=== PATIENT | female | born 1990 | race Caucasian/White ===

== ENCOUNTER 2018-09-27 11:52 | Emergency (ER) | payer OTHER ==
[~2018-09-27] VITALS: Ht 160 cm; Wt 56.7 kg
[2018-09-27 11:57] VITALS: BP_SYST 121
[2018-09-27] MEDS ORDERED: KETOROLAC TROMETHAMINE 60 MG/2 ML VIAL IM ONE ×2 (12:30→13:45)
[2018-09-27] MEDS ORDERED: PROCHLORPERAZINE EDISYLATE 10 MG/2 ML VIAL IM ONE ×2 (12:30→13:45)
[2018-09-27 14:10] VITALS: BP_SYST 111
== END 2018-09-27 14:10 | disposition home or self-care (01) ==
LOC: SED 11:52
DX: G43.909 Migraine, unspecified, not intractable, without status migrainosus (principal)
CPT/HCPCS: 70450; 81025; 96372; 99284; J0780; J1885

== ENCOUNTER 2020-10-01 11:31 | Observation (INO) | payer OTHER, SELFPAY ==
[~2020-10-01] VITALS: Ht 162.6 cm; Wt 73.0 kg
[2020-10-01] MEDS ORDERED: DIPHENOXYLATE HCL/ATROP SULF 2.5 MG TAB PO ONE (12:15)
[2020-10-01] MEDS ORDERED: D5/0.45 NS 1,000 ML IV ONE (12:15)
[2020-10-01 12:30] LABS: BASOPHILS % (AUTO) 0.2 % (0.0-2.0); EOSINOPHILS % (AUTO) 0.2 % (0.0-4.0); HEMATOCRIT 37.5 % (36-48); LYMPHOCYTES # (AUTO) 0.4 K/uL (1.0-5.5); LYMPHOCYTES % (AUTO) 2.2 % (20.5-51.5); MEAN CORPUSCULAR HEMOGLOBIN 32 pg (27-31); MEAN CORPUSCULAR HGB CONC 35 % (32-36); MEAN CORPUSCULAR VOLUME 93 fL (79.0-98.0); MONOCYTES # (AUTO) 0.8 K/uL (0.0-1.0); MONOCYTES % (AUTO) 4.6 % (1.7-9.3); NEUTROPHILS # (AUTO) 16.4 K/uL (1.8-7.7); NEUTROPHILS % (AUTO) 92.8 % (40.0-70.0); PLATELET COUNT (AUTO) 193 K/uL (130-430); RED BLOOD CELL COUNT(AUTO) 4.02 MIL/uL (4.2-6.2); RED CELL DISTRIBUTION WIDTH 13.3 % (9.0-15.0); WHITE BLOOD COUNT (AUTO) 17.7 K/uL (4.8-10.8)
[2020-10-01] MEDS: ONDANSETRON HCL 4 MG/2 ML VIAL IVP PRN ×2 (12:42→18:47)
[2020-10-01 12:44] LABS: CALCIUM 8.3 mg/dL (8.4-11.0); CREATININE 0.6 mg/dL (0.55-1.30); POTASSIUM 3.4 mmol/L (3.5-5.1)
[2020-10-01 12:57] LABS: ALBUMIN 2.5 g/dL (3.4-4.8); TOTAL BILIRUBIN 0.4 mg/dL (0.0-1.0)
[2020-10-01] MEDS: D5/0.45 NS 1,000 ML IV SCH ×2 (14:45→21:20)
[2020-10-01 16:03] LABS: BARBITURATE, URINE NEGATIVE (NEG <=200); BENZODIAZEPINE, URINE NEGATIVE (NEG <=150); CANNABINOID, URINE NEGATIVE (NEG <=50); COCAINE, URINE NEGATIVE (NEG <=150); METHAMPHETAMINES SCREEN,URINE NEGATIVE (NEG <=500); OPIATE, URINE NEGATIVE (NEG <=100); PHENCYCLIDINE SCREEN,URINE NEGATIVE (NEG <=25); UR TRICYCLIC ANTIDEPRESSANTS NEGATIVE (NEG <=300); URINE AMPHETAMINE NEGATIVE (NEG <=500); URINE METHADONE NEGATIVE (NEG <=200); URINE OXYCODONE SCREEN NEGATIVE (NEG <=100); URINE PROPOXYPHENE SCREEN NEGATIVE (NEG <=300)
[2020-10-01] MEDS ORDERED: CALCIUM CARBONATE 500 MG/ TAB.CHEW PO PRN (17:00)
[2020-10-01] MEDS ORDERED: METOCLOPRAMIDE HCL 10 MG/2 ML VIAL IVP PRN (18:45)
[2020-10-01] MEDS: ACETAMINOPHEN 325 MG TABLET PO PRN (20:07)
[2020-10-01 22:01] LABS: BILIRUBIN,URINE NEGATIVE (NEGATIVE); BLOOD, URINE NEGATIVE (NEGATIVE); CLARITY/URINE CLOUDY (CLEAR); COLOR,URINE YELLOW (YELLOW); GLUCOSE,URINE 2+ (NEGATIVE); KETONES,URINE 3+ (NEGATIVE); LEUKOCYTE ESTERASE ,URINE 2+ (NEGATIVE); NITRITE, URINE NEGATIVE (NEGATIVE); PROTEIN URINE TRACE (NEGATIVE); UROBILINOGEN,URINE 0.2 (0.2-1.0)
[2020-10-01 22:27] LABS: BACTERIA,URINE MODERATE /HPF (None Seen); RBC,URINE 0-3 /HPF (0-3)
[2020-10-01 22:28] LABS: MUCUS,URINE None Seen /LPF (None Seen); URINE AMORPHOUS URATE 4+ /HPF (None Seen)
[2020-10-02] MEDS ORDERED: CEFAZOLIN 2 GM IVPB PREMIX 50 ML IV ONE (00:40)
[2020-10-02] MEDS ORDERED: DIPHENOXYLATE HCL/ATROP SULF 2.5 MG TAB ONE (03:06)
[2020-10-02] MEDS ORDERED: DIPHENOXYLATE HCL/ATROP SULF 2.5 MG TAB PO ONE (03:15)
[2020-10-02] MEDS: D5/0.45 NS 1,000 ML IV SCH (05:40)
[2020-10-02] MEDS ORDERED: ceFAZolin SODIUM 2 GM in D5W 100 ML IV SCH (06:00)
[2020-10-02] MEDS: CEFAZOLIN 2 GM IVPB PREMIX 50 ML IV SCH ×2 (08:47→14:37)
[2020-10-02] MEDS: ACETAMINOPHEN 325 MG TABLET PO PRN (14:09)
== END 2020-10-02 15:30 | disposition home or self-care (01) ==
LOC: SPU 11:31
PROVIDERS: ADMIT Specialist; ATTEND Specialist
DX: O21.2 Late vomiting of pregnancy (principal); Z20.822 Contact with and (suspected) exposure to COVID-19; O99.283 Endocrine, nutritional and metabolic diseases complicating pregnancy, third trimester; E86.0 Dehydration; O26.893 Other specified pregnancy related conditions, third trimester; R19.7 Diarrhea, unspecified; R50.9 Fever, unspecified; Z3A.36 36 weeks gestation of pregnancy; Z79.899 Other long term (current) drug therapy
CPT/HCPCS: 36415; 76819; 80053; 80307; 81000; 81002; 85025; 87086; 87426; 96361 ×2; 96365; 96366; 96375; 96376; G0378 ×2; J0690; J2405

== ENCOUNTER 2024-01-22 16:30 | Emergency (ER) | payer MEDICAID ==
[~2024-01-22] VITALS: Ht 162.6 cm; Wt 61.2 kg
[~2024-01-22 16:30] MED LIST: ACET-2634 PO; FAMO20TA8 PO; ONDA-8 TL
[2024-01-22 16:45] VITALS: BP_SYST 112; PULSE 113; RESP 18; TEMP 98.3; O2SAT 99
[2024-01-22 17:26] LABS: BASOPHILS % (AUTO) 0.2 % (0.0-2.0); EOSINOPHILS % (AUTO) 0.4 % (0.0-4.0); HEMATOCRIT 47.7 % (36-48); HEMOGLOBIN 16.6 g/dL (12.0-16.0); LYMPHOCYTES # (AUTO) 0.5 K/uL (1.0-5.5); LYMPHOCYTES % (AUTO) 4.7 % (20.5-51.5); MEAN CORPUSCULAR HEMOGLOBIN 32 pg (27-31); MEAN CORPUSCULAR HGB CONC 35 % (32-36); MEAN CORPUSCULAR VOLUME 91 fL (79.0-98.0); MONOCYTES # (AUTO) 0.4 K/uL (0.0-1.0); MONOCYTES % (AUTO) 3.5 % (1.7-9.3); NEUTROPHILS # (AUTO) 10.1 K/uL (1.8-7.7); NEUTROPHILS % (AUTO) 91.2 % (40.0-70.0); PLATELET COUNT (AUTO) 252 K/uL (130-430); RED BLOOD CELL COUNT(AUTO) 5.22 MIL/uL (4.2-6.2); RED CELL DISTRIBUTION WIDTH 13.2 % (9.0-15.0)
[2024-01-22 17:33] LABS: INR 1.1 (0.8-1.2); PROTHROMBIN TIME 11.1 SECS (9.5-12.5)
[2024-01-22 19:19] LABS: BLOOD, URINE 3+ (NEGATIVE); COLOR,URINE YELLOW (YELLOW); GLUCOSE,URINE NEGATIVE (NEGATIVE); KETONES,URINE 3+ (NEGATIVE); LEUKOCYTE ESTERASE ,URINE NEGATIVE (NEGATIVE); NITRITE, URINE NEGATIVE (NEGATIVE); PROTEIN URINE 1+ (NEGATIVE); UROBILINOGEN,URINE 0.2 (0.2-1.0)
[2024-01-22 19:21] LABS: CLARITY/URINE SLIGHTLY HAZY (CLEAR)
[2024-01-22] MEDS ORDERED: ONDANSETRON 4 MG ODT TAB ONE (19:23)
[2024-01-22] MEDS: ONDANSETRON 4 MG ODT TAB PO ONE (19:24)
[2024-01-22 19:27] LABS: BACTERIA,URINE FEW /HPF (None Seen); MUCUS,URINE 1+ /LPF (None Seen); RBC,URINE 80-100 /HPF (0-3); WBC,URINE 0-3 /HPF (0-3)
[2024-01-22 19:28] LABS: BILIRUBIN,URINE NEGATIVE (NEGATIVE)
[2024-01-22] MEDS ORDERED: ONDA-8 TL (19:28)
[2024-01-22 19:32] VITALS: BP_SYST 121; PULSE 100; RESP 18; TEMP 98.6; O2SAT 97
== END 2024-01-22 19:32 | disposition home or self-care (01) ==
LOC: SED 16:30
DX: O03.9 Complete or unspecified spontaneous abortion without complication (principal); Z79.899 Other long term (current) drug therapy
CPT/HCPCS: 99284; 76801; 81001; 84702; 85025; 85610; 85730; 86900; 86901; 36415; 81025; Q0162; 76802; 81000; 81015